=== PATIENT | female | born 1980 | race Caucasian/White ===

== ENCOUNTER 2016-06-07 18:19 | Emergency (ER) | payer OTHER ==
[~2016-06-07] VITALS: Ht 170.1 cm; Wt 113.4 kg
[~2016-06-07 18:19] MED LIST: INDOMETHACIN50 MG PO; MEDROL DOSEPAK4 MG PO; Motrin,Rufen800 MG PO; PERCOCET 325 MG1 TA2 PO; SINGULAIR10 M1 PO; VENTOLIN H0.09 MG/AC INH
[2016-06-07 18:24] VITALS: BP 128/71
[2016-06-07] MEDS ORDERED: FLONASE ALLERG9.9 ML NAS (18:36)
[2016-06-07] MEDS ORDERED: CLARITIN10 MG PO (18:36)
[2016-06-07] MEDS ORDERED: PREDNISONE10 MG PO (18:36)
== END 2016-06-07 19:12 | disposition home or self-care (01) ==
LOC: ED 18:19
DX: J45.901 Unspecified asthma with (acute) exacerbation (principal); R03.0 Elevated blood-pressure reading, without diagnosis of hypertension; Z79.899 Other long term (current) drug therapy

== ENCOUNTER → 2017-08-30 | Outpatient (CLI) | payer OTHER ==
[~2017-08-30] MED LIST changes: +CLARITIN10 MG PO; +FLONASE ALLERG9.9 ML NAS; +PREDNISONE10 MG PO
== END | disposition home or self-care (01) ==
LOC: US 08-29 07:30
DX: K76.0 Fatty (change of) liver, not elsewhere classified (principal); N20.0 Calculus of kidney; Z90.49 Acquired absence of other specified parts of digestive tract; Z90.710 Acquired absence of both cervix and uterus

== ENCOUNTER 2018-04-10 16:17 | Emergency (ER) | payer OTHER ==
[~2018-04-10] VITALS: Ht 170.1 cm; Wt 117.9 kg
[2018-04-10 16:24] VITALS: BP 153/101
[2018-04-10] MEDS ORDERED: Motrin,Rufen800 MG PO (18:15)
[2018-04-10] MEDS ORDERED: CYCLOBENZAPRINE10 MG PO (18:15)
== END 2018-04-10 18:25 | disposition home or self-care (01) ==
LOC: ED 16:17
DX: S50.02XA Contusion of left elbow, initial encounter (principal); S09.90XA Unspecified injury of head, initial encounter; M25.512 Pain in left shoulder; Z79.899 Other long term (current) drug therapy; V89.2XXA Person injured in unspecified motor-vehicle accident, traffic, initial encounter; Y93.89 Activity, other specified; Y92.413 State road as the place of occurrence of the external cause; Y99.8 Other external cause status

== ENCOUNTER 2018-10-26 13:20 | Emergency (ER) | payer OTHER ==
[~2018-10-26] VITALS: Ht 170.1 cm; Wt 113.4 kg
--- NOTE | ~2018-10-26 | EKG ---
[place], [place] ELECTROCARDIOGRAM REPORT NAME: NEWTON BROWN UNIT #: [id number] ROOM: DOCTOR: EPIPHANY DRAFT REPORT BIRTHDATE: [birth year] [facility] Test Date: 2018-10-26 Test Time: 13:27:23 Pat Name: NEWTON BROWN Department: Room: Gender: F [employer]: : 1980 Requested By: GAURANG CARDENAS Order Number: [id number] Reading MD: Kole Escalona MD Measurements Intervals [place] Rate: 85 P: 41 DE: 144 QRS: 60 QRSD: 92 T: 43 QT: 352 QTc: 419 Interpretive Statements Sinus arrhythmia Borderline low voltage, extremity leads Abnormal R-wave progression, late transition ST elev, probable normal early repol pattern No previous ECG available for comparison Electronically Signed On 10-26-2018 15:09:26 PDT by Kole Escalona MD CM:EKGRPT:ELECTROCARDIOGRAM REPORT [id number] GAURANG RODRIGUEZ DRAFT REPORT GAURANG CARDENAS MD
[~2018-10-26 13:20] MED LIST changes: +CYCLOBENZAPRINE10 MG PO
[2018-10-26 13:22] VITALS: BP 177/89
[2018-10-26 13:42] LABS: BASO # 0.1 10*3/uL (0.0-0.1); BASO % 1.1 % (0.0-1.0); EOS # 0.7 10*3/uL (0.0-0.4); EOS % 6.9 % (1.0-4.0); HEMATOCRIT 41.9 % (37.0-47.0); HEMOGLOBIN 13.7 g/dl (12.0-16.0); LYMPH # 3.1 10*3/uL (1.3-4.4); LYMPH % 30.7 % (27.0-41.0); MEAN CELL VOLUME 85.5 fl (81.0-99.0); MEAN CORPUSCULAR HGB CONC 32.7 g/dl (33.0-37.0); MONO # 0.7 10*3/uL (0.1-1.0); MONO % 6.5 % (3.0-9.0); NEUT # 5.6 10*3/uL (2.3-7.9); NEUT % 54.5 % (47.0-73.0); PLATELET COUNT AUTOMATED 347 10*3/uL (130-400); RED CELL DISTRI WIDTH 13.3 % (0-14.5); WHITE BLOOD COUNT 10.2 10*3/uL (4.8-10.8)
[2018-10-26 13:53] LABS: ACT PARTIAL THROMBO TIME 28.7 SECONDS (20.0-32.1); INTERNATIONAL NORM RATIO 0.9 (2.0-3.5)
[2018-10-26 14:06] LABS: ALBUMIN 3.6 gm/dl (3.1-4.5); ALKALINE PHOSPHATASE 81 U/L (45-117); BUN 13 mg/dl (7-24); CHLORIDE 106 mmol/L (98-107); CREATININE 1.12 mg/dL (0.55-1.02); POTASSIUM 3.7 mmol/L (3.5-5.1); SGOT/AST 21 IU/L (3-35); SGPT/ALT 28 U/L (12-78); SODIUM 141 mmol/L (136-145); TOTAL PROTEIN 7.1 gm/dL (6.4-8.2)
[2018-10-26 14:07] LABS: TROPONIN I < 0.015 ng/ml (<0.045)
[2018-10-26] MEDS ORDERED: VENTOLIN 02.5 MG/3 M INH (15:25)
[2018-10-26] MEDS ORDERED: PREDNISONE10 MG PO (15:25)
== END 2018-10-26 15:27 | disposition home or self-care (01) ==
LOC: ED 13:20
PROVIDERS: Emergency Medicine
DX: J45.901 Unspecified asthma with (acute) exacerbation (principal); Z79.899 Other long term (current) drug therapy

== ENCOUNTER → 2020-03-22 | Outpatient (CLI) | payer OTHER ==
[~2020-03-22] MED LIST changes: +VENTOLIN 02.5 MG/3 M INH
== END | disposition home or self-care (01) ==
LOC: MAMMO 10:34
PROVIDERS: ATTEND Nurse Practitioner Family
DX: Z12.31 Encounter for screening mammogram for malignant neoplasm of breast (principal)

== ENCOUNTER 2022-04-10 02:35 | Emergency (ER) | payer OTHER ==
[~2022-04-10] VITALS: Ht 170.1 cm; Wt 108.9 kg
[2022-04-10 02:48] VITALS: BP 170/95
[2022-04-10] MEDS ORDERED: PENICILLIN VK500 MG PO (02:51)
== END 2022-04-10 03:16 | disposition home or self-care (01) ==
LOC: ED 02:35
DX: K02.9 Dental caries, unspecified (principal); Z79.899 Other long term (current) drug therapy; Z90.49 Acquired absence of other specified parts of digestive tract; Z90.89 Acquired absence of other organs; Z90.710 Acquired absence of both cervix and uterus; Z98.890 Other specified postprocedural states

== ENCOUNTER 2022-06-05 19:05 | Emergency (ER) | payer OTHER ==
[~2022-06-05] VITALS: Ht 170.1 cm; Wt 108.9 kg
[~2022-06-05 19:05] MED LIST changes: +PENICILLIN VK500 MG PO
[2022-06-05 20:30] LABS: BASO # 0.1 10*3/uL (0.0-0.1); BASO % 0.8 % (0.0-1.0); EOS # 0.7 10*3/uL (0.0-0.4); EOS % 5.2 % (1.0-4.0); HEMATOCRIT 42.1 % (37.0-47.0); LYMPH % 15.8 % (27.0-41.0); MEAN CELL VOLUME 87.2 fl (81.0-99.0); MEAN CORPUSCULAR HGB 28.6 pg (27.0-31.0); MEAN CORPUSCULAR HGB CONC 32.8 g/dl (33.0-37.0); MEAN PLATELET VOLUME 10.1 fl (9.6-12.3); MONO # 1.3 10*3/uL (0.1-1.0); MONO % 10.5 % (3.0-9.0); NEUT # 8.6 10*3/uL (2.3-7.9); NEUT % 67.5 % (47.0-73.0); PLATELET COUNT AUTOMATED 324 10*3/uL (130-400); RED BLOOD COUNT 4.83 10*6/uL (4.10-5.10); RED CELL DISTRI WIDTH 12.9 % (0-14.5); WHITE BLOOD COUNT 12.7 10*3/uL (4.8-10.8)
[2022-06-05 20:34] LABS: BILIRUBIN Negative (Negative); BLOOD Negative (Negative); CLARITY Cloudy (Clear); COLOR Yellow (Yellow); GLUCOSE Negative (Negative); KETONE Negative (Negative); LEUKO ESTERASE Negative (Negative); NITRITE Negative (Negative); SPECIFIC GRAVITY 1.015 (1.001-1.030); UROBILINOGEN 0.2 E.U./dl (0.0-1.0)
[2022-06-05 20:44] LABS: POTASSIUM 3.8 mmol/L (3.4-5.1); TOTAL PROTEIN 7.2 gm/dL (6.0-8.0)
[2022-06-05 21:03] LABS: EPITHELIAL CELLS 41-50; RBC 0-2 rbc/hpf (0-2); WBC 0-2 wbc/hpf (0-5)
[2022-06-06 03:00] VITALS: BP 130/81
== END 2022-06-06 03:21 | disposition short-term general hospital (02) ==
LOC: ED 19:05
PROVIDERS: Nurse Practitioner Family
DX: N13.2 Hydronephrosis with renal and ureteral calculous obstruction (principal); N13.30 Unspecified hydronephrosis; N13.8 Other obstructive and reflux uropathy; Z87.442 Personal history of urinary calculi; Z90.710 Acquired absence of both cervix and uterus; Z90.49 Acquired absence of other specified parts of digestive tract; Z98.890 Other specified postprocedural states; Z20.822 Contact with and (suspected) exposure to COVID-19

== ENCOUNTER 2022-06-25 16:04 | Emergency (ER) | payer OTHER ==
[~2022-06-25] VITALS: Ht 170.1 cm; Wt 108.9 kg
[2022-06-25 16:10] VITALS: BP 131/76
[2022-06-25 16:37] LABS: BASO # 0.1 10*3/uL (0.0-0.1); BASO % 1.5 % (0.0-1.0); EOS # 0.9 10*3/uL (0.0-0.4); EOS % 9.3 % (1.0-4.0); HEMATOCRIT 40.5 % (37.0-47.0); LYMPH # 2.8 10*3/uL (1.3-4.4); LYMPH % 29.4 % (27.0-41.0); MEAN CELL VOLUME 87.1 fl (81.0-99.0); MEAN CORPUSCULAR HGB CONC 32.1 g/dl (33.0-37.0); MEAN PLATELET VOLUME 9.3 fl (9.6-12.3); MONO # 0.8 10*3/uL (0.1-1.0); MONO % 8.2 % (3.0-9.0); NEUT # 4.8 10*3/uL (2.3-7.9); NEUT % 51.5 % (47.0-73.0); PLATELET COUNT AUTOMATED 363 10*3/uL (130-400); RED BLOOD COUNT 4.65 10*6/uL (4.10-5.10); RED CELL DISTRI WIDTH 12.7 % (0-14.5); WHITE BLOOD COUNT 9.4 10*3/uL (4.8-10.8)
[2022-06-25 16:52] LABS: ALKALINE PHOSPHATASE 68 U/L (46-116); BUN 11 mg/dl (9-23); CHLORIDE 102 mmol/L (98-107); POTASSIUM 3.9 mmol/L (3.4-5.1); SGPT/ALT 12 U/L (10-49); TOTAL PROTEIN 7.1 gm/dL (6.0-8.0)
[2022-06-25 17:01] LABS: BILIRUBIN Negative (Negative); BLOOD 3+ (Negative); CLARITY Clear (Clear); COLOR Yellow (Yellow); GLUCOSE Negative (Negative); KETONE Negative (Negative); LEUKO ESTERASE 1+ (Negative); NITRITE Negative (Negative); PH 5.5 (4.5-8.0); SPECIFIC GRAVITY <= 1.005 (1.001-1.030); UROBILINOGEN 0.2 E.U./dl (0.0-1.0)
[2022-06-25 17:06] LABS: RBC 21-30 rbc/hpf (0-2)
[2022-06-25] MEDS ORDERED: MACROBID100 M1 PO (17:57)
[2022-06-25] MEDS ORDERED: ONDANSETRON4 MG SL (18:12)
== END 2022-06-25 19:25 | disposition home or self-care (01) ==
LOC: ED 16:04
PROVIDERS: Nurse Practitioner Family
DX: N20.0 Calculus of kidney (principal); Z87.442 Personal history of urinary calculi; Z98.890 Other specified postprocedural states; Z90.49 Acquired absence of other specified parts of digestive tract

== ENCOUNTER 2023-11-08 14:11 | Emergency (ER) | payer SELFPAY ==
[~2023-11-08] VITALS: Ht 170.1 cm; Wt 90.7 kg
[~2023-11-08 14:11] MED LIST changes: +CIPRO500 MG PO; +MACROBID100 M1 PO; +MELOXICAM15 MG PO; +ONDANSETRON4 MG SL
[2023-11-08 14:40] LABS: BILIRUBIN Negative (Negative); BLOOD 3+ (Negative); CLARITY Clear (Clear); COLOR Yellow (Yellow); GLUCOSE Negative (Negative); KETONE Negative (Negative); LEUKO ESTERASE Negative (Negative); NITRITE Negative (Negative); PH 5.5 (4.5-8.0); UROBILINOGEN 0.2 E.U./dl (0.0-1.0)
[2023-11-08] MEDS ORDERED: Tamsulosin Hydrochloride 0.4 MG CAP PO ONE (14:40)
[2023-11-08] MEDS ORDERED: SODIUM CHLORIDE 0.9% 1,000 ML IV ONE (14:40)
[2023-11-08] MEDS ORDERED: Ondansetron Hydrochloride 4 MG/2 ML VIAL IV ONE (14:40)
[2023-11-08] MEDS ORDERED: Ketorolac Tromethamine 15 MG/ML VIAL IV ONE (14:40)
[2023-11-08 14:53] LABS: BASO # 0.1 10*3/uL (0.0-0.1); BASO % 0.7 % (0.0-1.0); EOS # 0.5 10*3/uL (0.0-0.4); EOS % 3.4 % (1.0-4.0); HEMATOCRIT 41.5 % (37.0-47.0); LYMPH % 14.7 % (27.0-41.0); MEAN CELL VOLUME 85.9 fl (81.0-99.0); MEAN CORPUSCULAR HGB 28.2 pg (27.0-31.0); MEAN CORPUSCULAR HGB CONC 32.8 g/dl (33.0-37.0); MEAN PLATELET VOLUME 10.2 fl (9.6-12.3); MONO % 7.2 % (3.0-9.0); NEUT % 73.6 % (47.0-73.0); PLATELET COUNT AUTOMATED 379 10*3/uL (130-400); RED BLOOD COUNT 4.83 10*6/uL (4.10-5.10); RED CELL DISTRI WIDTH 13.1 % (0-14.5); WHITE BLOOD COUNT 13.6 10*3/uL (4.8-10.8)
[2023-11-08 14:54] LABS: RBC TNTC rbc/hpf (0-2)
[2023-11-08 14:55] LABS: BACTERIA 2+
[2023-11-08 15:09] LABS: BUN 17 mg/dl (9-23); CHLORIDE 106 mmol/L (98-107); POTASSIUM 3.4 mmol/L (3.4-5.1)
[2023-11-08 16:12] VITALS: BP 108/74
[2023-11-08] MEDS ORDERED: Ondansetron4 MG PO (16:30)
[2023-11-08] MEDS ORDERED: FLOMAX0.4 MG PO (16:30)
[2023-11-08] MEDS ORDERED: KETOROLAC10 MG PO (16:30)
[2023-11-08] MEDS ORDERED: CIPRO500 MG PO (16:30)
== END 2023-11-08 16:34 | disposition home or self-care (01) ==
LOC: ED 14:11
PROVIDERS: Nurse Practitioner Family
DX: N13.2 Hydronephrosis with renal and ureteral calculous obstruction (principal); J45.909 Unspecified asthma, uncomplicated; Z90.49 Acquired absence of other specified parts of digestive tract; Z98.890 Other specified postprocedural states; Z90.710 Acquired absence of both cervix and uterus

== ENCOUNTER 2024-06-20 14:26 | Emergency (ER) | payer SELFPAY ==
[~2024-06-20] VITALS: Ht 170.1 cm; Wt 99.8 kg
[~2024-06-20 14:26] MED LIST changes: +FLOMAX0.4 MG PO; +KETOROLAC10 MG PO; +Ondansetron4 MG PO
[2024-06-20 14:47] VITALS: BP 125/71
[2024-06-20 15:14] LABS: BILIRUBIN Negative (Negative); BLOOD Negative (Negative); CLARITY Cloudy (Clear); COLOR Yellow (Yellow); GLUCOSE Negative (Negative); KETONE Negative (Negative); LEUKO ESTERASE Negative (Negative); NITRITE Negative (Negative); PH 5.5 (4.5-8.0); SPECIFIC GRAVITY 1.025 (1.001-1.030); UROBILINOGEN 0.2 E.U./dl (0.0-1.0)
[2024-06-20 15:26] LABS: BACTERIA 1+; EPITHELIAL CELLS 21-30; RBC 0-2 rbc/hpf (0-2)
[2024-06-20 15:27] LABS: MUCOUS 1+
[2024-06-20] MEDS ORDERED: LEVOFLOXACIN750 M2 PO (15:38)
[2024-06-20] MEDS ORDERED: LEVOFLOXACIN 750 MG TAB PO ONE (15:50)
== END 2024-06-20 15:47 | disposition home or self-care (01) ==
LOC: ED 14:26
PROVIDERS: Emergency Medicine
DX: J45.909 Unspecified asthma, uncomplicated (principal); N39.0 Urinary tract infection, site not specified; Z90.49 Acquired absence of other specified parts of digestive tract; Z98.890 Other specified postprocedural states; Z90.710 Acquired absence of both cervix and uterus